=== PATIENT | female | born 1995 | race Caucasian/White ===

== ENCOUNTER 2022-10-02 16:34 | Emergency (ER) | payer MEDICAID, OTHER ==
[2022-10-02] MEDS ORDERED: LORazepam 2 MG/ML SDV IM ONE (17:09)
[2022-10-02] MEDS ORDERED: Ketorolac 30 MG/ML SDV IM ONE (17:09)
[2022-10-02] MEDS ORDERED: LORazepam 2 MG/ML SDV IVPUSH ONE (17:59)
[2022-10-02] MEDS ORDERED: Sodium Chloride 0.9% 10 ML Syringe FLUSH PRN (17:59)
[2022-10-02] MEDS ORDERED: diphenhydrAMINE 50 MG/ML SDV IVPUSH ONE (18:00)
== END 2022-10-03 05:37 | disposition home or self-care (01) ==
LOC: JP.ED 16:34
DX: F11.23 Opioid dependence with withdrawal (principal); Z88.8 Allergy status to other drugs, medicaments and biological substances
CPT/HCPCS: 96372; 96374; 96375; 99283-25; J1200; J1885; J2060; J3490

== ENCOUNTER 2024-04-10 13:22 | Emergency (ER) | payer MEDICAID ==
[2024-04-10] MEDS ORDERED: Methadone 10 MG Tab PO STA (15:28)
[2024-04-10] MEDS: Methadone Oral Concentrate 10 MG/1 ML ML 30 ML Bottle PO ONE (16:19)
== END 2024-04-10 16:42 | disposition home or self-care (01) ==
LOC: JP.ED 13:22
DX: O99.322 Drug use complicating pregnancy, second trimester (principal); F11.13 Opioid abuse with withdrawal; Z3A.26 26 weeks gestation of pregnancy; Z79.891 Long term (current) use of opiate analgesic; Z88.8 Allergy status to other drugs, medicaments and biological substances
CPT/HCPCS: 99283; A9270-GY

== ENCOUNTER 2025-02-25 10:02 | Emergency (ER) | payer MEDICAID ==
[2025-02-25] MEDS: Ketorolac 30 MG/ML SDV IM ONE (10:45)
== END 2025-02-25 10:56 | disposition home or self-care (01) ==
LOC: JP.ED 10:02
DX: K02.9 Dental caries, unspecified (principal); L03.211 Cellulitis of face; J45.909 Unspecified asthma, uncomplicated; Z79.899 Other long term (current) drug therapy; Z88.8 Allergy status to other drugs, medicaments and biological substances
CPT/HCPCS: 96372; 99282; J1885

== ENCOUNTER 2025-07-03 03:49 | Emergency (ER) | payer MEDICAID | END 2025-07-03 04:39 | disposition home or self-care (01) | LOC: JP.ED 03:49 | DX: H66.91 Otitis media, unspecified, right ear (principal); Z88.8 Allergy status to other drugs, medicaments and biological substances; Z79.899 Other long term (current) drug therapy | CPT/HCPCS: 99283 ==